=== PATIENT | male | born 1990 | race African-American/Black ===

== ENCOUNTER 2019-11-19 03:29 | Emergency (ER) | payer SELFPAY ==
[~2019-11-19] VITALS: Ht 182.9 cm; Wt 100.0 kg
[2019-11-19] MEDS ORDERED: IBUPROFEN 600MG TABLET PO ONE (04:00)
[2019-11-19] MEDS ORDERED: BACITRACIN ZINC OINT UDPKT TOP ONE (04:00)
[2019-11-19 05:13] VITALS: BP 145/79
== END 2019-11-19 05:17 | disposition home or self-care (01) ==
LOC: EDBD 03:29 → ER 03:29
DX: S80.01XA Contusion of right knee, initial encounter (principal); S80.212A Abrasion, left knee, initial encounter; S40.212A Abrasion of left shoulder, initial encounter; X58.XXXA Exposure to other specified factors, initial encounter; Y93.89 Activity, other specified; Y92.89 Other specified places as the place of occurrence of the external cause; Y99.8 Other external cause status
CPT/HCPCS: 99283